=== PATIENT | female | born 1970 | race African-American/Black ===

== ENCOUNTER 2023-09-24 08:04 | Observation (INO) ==
[2023-09-24] MEDS: Albuterol/Ipratropium NEB.SOL (2.5/0.5 MG) 3 ML NEB.SOLN INH ONE (09:08)
[2023-09-24] MEDS: Magnesium Sulfate 2 gm BAG 2 GM/50 ML BAG IVPB ONE (09:16)
[2023-09-24] MEDS: methylPREDNISolone SOD SUCC 125 mg 2 ML VIAL IV ONE (09:17)
[2023-09-24] MEDS: Lactated Ringers 1000 ml BAG 1,000 ML IV ONE (09:17)
[2023-09-24 09:42] LABS: ABS Eosinophils 0.3 10^3/uL (0.0-0.5); ABS Lymphocytes 1.5 10^3/uL (1.0-4.8); ABS Monocytes 0.3 10^3/uL (0.0-0.9); ABS Nucleated RBC 0.01 10^3/ul; Eosinophil % 5.8 %; Hematocrit 38.5 % (35-45); Hemoglobin 12.7 g/dL (11.5-14.3); Lymphocyte % 28.8 %; Mean Corpuscular Hemoglobin 28.5 pg (27-33); Mean Corpuscular Volume 86.4 fL (80-97); Mean Platelet Volume 8.3 fL (7.5-11.2); Nucleated Red Blood Cells % 0.1 %/100WBC (0.0-0.8); Platelet Count 230 10^3/uL (150-450); Red Blood Count 4.46 10^6/uL (3.63-4.92); Red Cell Distribution Width 14.1 % (12-17); White Blood Count 5.1 10^3/uL (3.8-11.8)
[2023-09-24 10:27] LABS: Albumin 4.3 g/dL (3.2-5.2); Albumin/Globulin Ratio 1.7 (1-3); C Reactive Protein 2.89 mg/L (<8.01); Calcium 9.2 mg/dL (8.6-10.3); Creatinine, Serum 0.88 mg/dL (0.51-0.95); Globulin 2.5 g/dL (2-4); Magnesium 2.2 mg/dL (1.9-2.7); Potassium 3.8 mmol/L (3.5-5.0); Total Bilirubin 0.4 mg/dL (0.2-1.0); Total Protein 6.8 g/dL (6.4-8.9)
[2023-09-24] MEDS: Albuterol 2.5mg/3 ml (0.083%) NEB.SOLN INH ONE (10:42)
[2023-09-24] MEDS ORDERED: Albuterol 0.5% CONC CONTINUOUS NEB.SOL 5 mg/ml 20 ml BOT INH SCH (11:00)
[2023-09-24] MEDS: Albuterol (2.5 MG) 0.5 % CONC 0.5 ML NEB.SOLN INH SCH (11:19)
[2023-09-24] MEDS: Albuterol 2.5mg/3 ml (0.083%) NEB.SOLN INH PRN (15:11)
[2023-09-24] MEDS: Albuterol/Ipratropium NEB.SOL (2.5/0.5 MG) 3 ML NEB.SOLN INH SCH (20:22)
[2023-09-24] MEDS: Mometasone/Formoter 100/5 MDI INH SCH (20:23)
[2023-09-25 10:03] VITALS: BP 163/87
== END 2023-09-25 12:55 | disposition home or self-care (01) ==
LOC: ED 08:04 → EDHOLD 08:04 → MEDTELE 15:21
PROVIDERS: ADMIT Hospitalist; ATTEND Internal Medicine

== ENCOUNTER 2024-01-29 06:50 | Inpatient (IN) ==
[2024-01-29] MEDS: Magnesium Sulfate 2 gm BAG 2 GM/50 ML BAG IVPB ONE ×2 (07:09→14:11)
[2024-01-29] MEDS: methylPREDNISolone SOD SUCC 125 mg 2 ML VIAL IV ONE (07:09)
[2024-01-29] MEDS: Albuterol 2.5mg/3 ml (0.083%) NEB.SOLN INH ONE ×2 (07:10→07:11)
[2024-01-29] MEDS: Albuterol/Ipratropium NEB.SOL (2.5/0.5 MG) 3 ML NEB.SOLN INH ONE ×2 (07:10→08:06)
[2024-01-29] MEDS ORDERED: Lorazepam PYXIS KEY PRN ×2 (09:07→13:45)
[2024-01-29] MEDS: LORazepam 2 mg VIAL 1 ml IV PUSH ONE ×2 (09:24→14:11)
[2024-01-29] MEDS ORDERED: Albuterol (2.5 MG) 0.5 % CONC 0.5 ML NEB.SOLN INH SCH (10:00)
[2024-01-29 10:12] LABS: ABS Lymphocytes 0.3 10^3/uL (1.0-4.8); ABS Monocytes 0.1 10^3/uL (0.0-0.9); ABS Neutrophils 5.6 10^3/uL (1.5-7.6); Eosinophil % 0.5 %; Hematocrit 38.5 % (35-45); Hemoglobin 12.9 g/dL (11.5-14.3); Lymphocyte % 4.9 %; Mean Corpuscular Hemoglobin 28.9 pg (27-33); Mean Corpuscular Hgb Conc 33.4 g/dL (31-36); Mean Corpuscular Volume 86.6 fL (80-97); Mean Platelet Volume 7.6 fL (7.5-11.2); Platelet Count 264 10^3/uL (150-450); Red Blood Count 4.44 10^6/uL (3.63-4.92); Red Cell Distribution Width 13.9 % (12-17); White Blood Count 6.1 10^3/uL (3.8-11.8)
[2024-01-29 11:25] LABS: Albumin 4.4 g/dL (3.2-5.2); Albumin/Globulin Ratio 1.8 (1-3); C Reactive Protein 6.21 mg/L (<8.01); Calcium 9.1 mg/dL (8.6-10.3); Creatinine, Serum 0.81 mg/dL (0.51-0.95); Globulin 2.4 g/dL (2-4); Potassium 3.9 mmol/L (3.5-5.0); Total Bilirubin 0.6 mg/dL (0.2-1.0); Total Protein 6.8 g/dL (6.4-8.9); eGFR CKD-EPI 86.7 (>60)
[2024-01-29] MEDS: Lactated Ringers 1000 ml BAG 1,000 ML IV ONE (11:27)
[2024-01-29] MEDS ORDERED: Polyethylene Glycol 3350 17 GM PACKET PO PRN (12:46)
[2024-01-29] MEDS: Albuterol/Ipratropium NEB.SOL (2.5/0.5 MG) 3 ML NEB.SOLN INH SCH (15:24)
[2024-01-29] MEDS: methylPREDNISolone SOD SUCC 40 mg/ml 1 ml VIAL IV SCH (19:43)
[2024-01-30] MEDS: Butalb/Acetamin/Caff TAB 325-50-40MG PO ONE (06:23)
[2024-01-30 09:04] LABS: Creatinine, Serum 0.77 mg/dL (0.51-0.95); Magnesium 2.5 mg/dL (1.9-2.7); Potassium 4.4 mmol/L (3.5-5.0); eGFR CKD-EPI 92.2 (>60)
[2024-01-31] MEDS: methylPREDNISolone SOD SUCC 40 mg/ml 1 ml VIAL IV SCH (09:05)
[2024-01-31] MEDS: Budesonide NEB 0.25 MG/2 ML NEB.SOLN INH SCH (10:16)
[2024-01-31] MEDS: Mometasone/Formoter 100/5 MDI INH SCH (10:24)
[2024-01-31 12:56] LABS: ABS Lymphocytes 0.7 10^3/uL (1.0-4.8); ABS Monocytes 0.1 10^3/uL (0.0-0.9); ABS Neutrophils 5.9 10^3/uL (1.5-7.6); Eosinophil % 0.1 %; Hematocrit 40.9 % (35-45); Hemoglobin 13.6 g/dL (11.5-14.3); Mean Corpuscular Hemoglobin 28.7 pg (27-33); Mean Corpuscular Hgb Conc 33.2 g/dL (31-36); Mean Corpuscular Volume 86.4 fL (80-97); Mean Platelet Volume 7.9 fL (7.5-11.2); Platelet Count 283 10^3/uL (150-450); Red Blood Count 4.73 10^6/uL (3.63-4.92); Red Cell Distribution Width 14.3 % (12-17); White Blood Count 6.7 10^3/uL (3.8-11.8)
[2024-01-31 13:49] LABS: Calcium 9.5 mg/dL (8.6-10.3); Creatinine, Serum 0.89 mg/dL (0.51-0.95); Phosphorus 2.3 mg/dL (2.5-5.0); Potassium 4.2 mmol/L (3.5-5.0); eGFR CKD-EPI 77.5 (>60)
[2024-01-31] MEDS: Enoxaparin 40 MG/0.4 ML SYR SUBCUT SCH (17:05)
[2024-01-31] MEDS: Potassium & Sodium Phos 250 mg = 1 PACKET PO SCH (19:42)
[2024-01-31] MEDS: Albuterol/Ipratropium NEB.SOL (2.5/0.5 MG) 3 ML NEB.SOLN INH PRN (23:42)
[2024-02-01] MEDS: Benzocaine/Menthol LOZ PO PRN (06:08)
[2024-02-01 07:31] LABS: Hematocrit 40.5 % (35-45); Hemoglobin 13.6 g/dL (11.5-14.3); Mean Corpuscular Hemoglobin 28.8 pg (27-33); Mean Corpuscular Hgb Conc 33.6 g/dL (31-36); Mean Corpuscular Volume 85.7 fL (80-97); Mean Platelet Volume 8.2 fL (7.5-11.2); Platelet Count 314 10^3/uL (150-450); Red Blood Count 4.73 10^6/uL (3.63-4.92); White Blood Count 9.1 10^3/uL (3.8-11.8)
[2024-02-01 07:53] LABS: Calcium 8.9 mg/dL (8.6-10.3); Creatinine, Serum 0.8 mg/dL (0.51-0.95); Magnesium 2.1 mg/dL (1.9-2.7); Phosphorus 4.5 mg/dL (2.5-5.0); Potassium 4.5 mmol/L (3.5-5.0)
[2024-02-01 08:57] LABS: ABS Lymphocytes 0.8 10^3/uL (1.0-4.8); ABS Monocytes 0.2 10^3/uL (0.0-0.9); ABS Neutrophils 8.1 10^3/uL (1.5-7.6); Lymphocyte % 8.6 %
[2024-02-01] MEDS: Albuterol/Ipratropium NEB.SOL (2.5/0.5 MG) 3 ML NEB.SOLN INH SCH (13:04)
[2024-02-01] MEDS: methylPREDNISolone SOD SUCC 40 mg/ml 1 ml VIAL IV SCH (21:17)
[2024-02-02 06:26] LABS: Hematocrit 42.1 % (35-45); Hemoglobin 14.2 g/dL (11.5-14.3); Mean Corpuscular Hemoglobin 28.8 pg (27-33); Mean Corpuscular Hgb Conc 33.7 g/dL (31-36); Mean Corpuscular Volume 85.4 fL (80-97); Mean Platelet Volume 7.7 fL (7.5-11.2); Platelet Count 327 10^3/uL (150-450); Red Blood Count 4.93 10^6/uL (3.63-4.92); Red Cell Distribution Width 14.7 % (12-17); White Blood Count 9.8 10^3/uL (3.8-11.8)
[2024-02-02 07:03] LABS: Creatinine, Serum 0.86 mg/dL (0.51-0.95); Magnesium 2.3 mg/dL (1.9-2.7); Potassium 4.8 mmol/L (3.5-5.0); eGFR CKD-EPI 80.7 (>60)
[2024-02-02 07:40] LABS: ABS Lymphocytes 1.2 10^3/uL (1.0-4.8); ABS Monocytes 0.4 10^3/uL (0.0-0.9); ABS Neutrophils 8.2 10^3/uL (1.5-7.6); ABS Nucleated RBC 0.01 10^3/ul; Lymphocyte % 12.7 %; Nucleated Red Blood Cells % 0.1 %/100WBC (0.0-0.8)
[2024-02-02 09:09] VITALS: BP 137/77
== END 2024-02-02 13:30 | disposition home or self-care (01) | DRG 203 ==
LOC: ED 06:50 → EDHOLD 06:50 → SUATTDRO 12:46 → MED 14:03
PROVIDERS: ADMIT Internal Medicine; ATTEND Internal Medicine